=== PATIENT | male | born 1985 | race Caucasian/White ===

== ENCOUNTER 2020-07-03 19:10 | Emergency (ER) | payer OTHER ==
[~2020-07-03] VITALS: Ht 175.3 cm; Wt 68.0 kg
[2020-07-03 19:10] VITALS: BP 129/84
== END 2020-07-03 19:32 | disposition home or self-care (01) ==
LOC: ER 19:21
DX: S61.531A Puncture wound without foreign body of right wrist, initial encounter (principal); X58.XXXA Exposure to other specified factors, initial encounter; Y93.89 Activity, other specified; Y92.89 Other specified places as the place of occurrence of the external cause; Y99.8 Other external cause status

== ENCOUNTER 2023-09-19 11:16 | Emergency (ER) | payer MEDICAID, OTHER ==
[~2023-09-19] VITALS: Ht 172.7 cm; Wt 79.4 kg
[2023-09-19] MEDS ORDERED: CYCLOBENZAPRINE 10 MG TABLET ONE (11:49)
[2023-09-19] MEDS ORDERED: IBUPROFEN 600 MG TABLET ONE (11:50)
[2023-09-19] MEDS: CYCLOBENZAPRINE 10 MG TABLET PO ONE (11:52)
[2023-09-19] MEDS: IBUPROFEN 600 MG TABLET PO ONE (11:52)
[2023-09-19 11:53] VITALS: TEMP 98.3
[2023-09-19] MEDS ORDERED: CYCL5TAB PO (13:16)
[2023-09-19 14:02] VITALS: BP 112/46; O2SAT 97
== END 2023-09-19 14:02 | disposition home or self-care (01) ==
LOC: ER 11:26
DX: M54.50 Low back pain, unspecified (principal)
CPT/HCPCS: 72110-TC